=== PATIENT | female | born 1935 | race Caucasian/White ===

== ENCOUNTER 2018-12-17 15:15 | Inpatient (IN) ==
[2018-12-17] MEDS ORDERED: ASPIRIN PO ONE (16:02)
[2018-12-17] MEDS ORDERED: ASPIRIN PR ONE (16:02)
[2018-12-17 16:33] LABS: BE 1.9 mmoll (-3.0-3.0); BLOOD TYPE ARTERIAL; HCO3-(ACT) 26.3 mmoll (20.0-26.0); METHB 1.3 % (0.0-1.5); O2(CT) 21.5 mL/dL (15.0-23.0); O2HB 93.2 % (95.0-99.0); PCO2(98.6) 30 mmHg (35-45); PO2(98.6) 66 mmHg (60-100); SAMPLE BLOOD; SAO2 96.8 % (95.0-100.0); THB 16.4 g/dL (11.5-17.4); pH(98.6) 7.51 (7.35-7.45)
[2018-12-17 16:35] LABS: ALLEN TEST YES; MODALITY ROOM AIR
[2018-12-17 16:59] LABS: BASO# 0.04 X1000 (0.0-0.2); BASO% 0.5 % (0.0-0.8); EOS# 0.01 X1000 (0.0-0.7); EOS% 0.1 % (0.0-10.0); HEMATOCRIT 46.1 % (37.0-47.0); HEMOGLOBIN 15.8 g/dL (12.0-16.0); IMM GRAN# 0.02 X1000 (0.0-0.04); IMM GRAN% 0.2 % (0.0-0.5); LYMPH# 1.08 X1000 (1.2-3.4); LYMPH% 12.2 % (20.5-51.1); MCH 30.9 PG (27-31); MCHC 34.3 g/dL (33-37); MONO# 0.93 X1000 (0.11-0.59); MONO% 10.5 % (1.7-9.3); NEUT# 6.77 X1000 (1.4-6.5); NEUT% 76.5 % (42.2-75.2); PLT 249 X1000 (130-400); RBC 5.12 XMIL (4.2-5.4); RDW 12.9 % (11.5-14.5); WBC 8.85 X1000 (4.8-10.8)
[2018-12-17 17:21] LABS: ALBUMIN 4.3 g/dL (3.5-5.0); CALCIUM 10.7 mg/dL (8.8-10.2); POTASSIUM 3.7 mmol/L (3.5-5.1); TOTAL BILIRUBIN 0.7 mg/dL (0.20-1.00); TOTAL PROTEIN 7.3 g/dL (6.3-8.3)
[2018-12-17 17:24] LABS: PROTIME 13.7 Seconds (11.0-16.0); PTT 26.7 Seconds (22.3-41.8)
--- NOTE | 2018-12-17 17:33 | PROVIDER DOCUMENTATION ---
HPI-Respiratory General - General Chief Complaint: Shortness of Breath Stated Complaint: SOB Time Seen by Provider: 12/17/18 17:20 Source: patient Allergies/Adverse Reactions: Patient Allergies Allergy/AdvReac Type Severity Reaction Status Date / Time Penicillins Allergy Intermediate RASH Verified 03/07/17 19:48 Sulfa (Sulfonamide Allergy Intermediate RASH Verified 03/07/17 19:48 Antibiotics) Home Medications: Home Medication List Medication Instructions Recorded Confirmed Last Taken Type Amlodipine Besylate [Norvasc] 5 mg PO DAILY 12/01/15 03/07/17 03/07/17 08:30 History Pregabalin [Lyrica] 25 mg PO TID 12/01/15 03/07/17 03/07/17 08:30 History Quetiapine Fumarate [Seroquel] 25 mg PO QHS 12/01/15 03/07/17 03/06/17 History Zolpidem [Ambien] 5 mg PO QHS 12/01/15 03/07/17 03/06/17 History ATORVAstatin [Lipitor] 20 mg PO QHS 03/07/17 03/07/17 03/06/17 History Aspirin 81 mg PO HS 03/07/17 03/07/17 03/06/17 History Dicyclomine HCl [Bentyl] 20 mg PO 3-4XDAY PRN PRN 03/07/17 03/07/17 Unknown History Metoclopramide HCl 2 tsp PO PRN PRN 03/07/17 03/07/17 Unknown History Nitrofurantoin Monohyd/M-Cryst 100 mg PO BID 03/07/17 03/07/17 03/07/17 08:30 History [Macrobid 100 mg Capsule] Sitagliptin Phos/Metformin HCl 1 each PO BID 03/07/17 03/07/17 03/07/17 08:30 History [Janumet Xr 100-1,000 mg Tablet] - History of Present Illness-Resp Nature of Presenting Problem: Patient is a 83 year old white female with history of HTN and diabetes who presents with daughter complaining of shortness of breath and orthopnea since 12 midnight last night. Denies chest pain, productive cough, fever, asthma, or history of blood clots. Review of Systems - Adult - REVIEW OF SYSTEMS - ADULT Constitutional: denies: chills, fever Eyes: denies: discharge Ears, Nose, Mouth & Throat: denies: throat pain Cardiovascular: reports: orthopnea. denies: chest pain Respiratory: reports: see HPI, shortness of breath Gastrointestinal: denies: abdominal pain, nausea, vomiting Genitourinary: denies: dysuria Musculoskeletal: reports: no symptoms reported Integumentary: denies: rash Neurological: reports: no symptoms reported Psychiatric: reports: no symptoms reported Endocrine: reports: no symptoms reported Hematologic/Lymphatic: reports: no symptoms reported Allergic/Immunologic: reports: no symptoms reported All Other Systems: Reviewed and Negative Past History - Adult - PAST MEDICAL HISTORY-ADULT Review of Records: reports: Old Records Reviewed, Nursing Assessment Review, Medications Reviewed, Social history reviewed & non-contributory. Major Childhood Illnesses: reports: denies history Cardiovascular: reports: HTN Musculoskeletal: reports: fibromyalgia Endocrine/Immune: reports: Diabetes - PRIOR SURGERIES/PROCEDURES Surgical/Procedure History: reports: cholecystectomy, hysterectomy, other (TMJ, ear, cervical fusions) - IMMUNIZATION STATUS Childhood Immunizations: See Nurse Assessment Flu Vaccine: See Nurse Assessment - FAMILY HISTORY Family History: reviewed, not pertinent - SOCIAL HISTORY Smoking: denies Substance Use: denies Alcohol Use Frequency: never Living Situation: family Physical Exam-General - PHYSICAL EXAM-ADULT Initial Vital Signs Reviewed: Yes - CONSTITUTIONAL General Appearance: alert, no apparent distress, other (nondiaphoretic) - EYES Eyes: other (clear) - HEAD, EARS, NOSE, MOUTH & THROAT HENMT: moist mucous membranes, normal ENT inspection - NECK Neck: supple - RESPIRATORY Respiratory: lungs clear, decreased breath sounds (decreased breath sounds over right lung base) - CARDIOVASCULAR Cardiovascular: regular rate, rhythm - GASTROINTESTINAL (ABDOMEN) Abdominal Exam: normal bowel sounds, non tender, soft - LYMPHATIC Lymphatic: no adenopathy - MUSCULOSKELETAL Back Exam: normal inspection, no CVA tenderness Extremity: non-tender, other (mild pedaledema, no cords, no Homans) - SKIN Integumentary: normal color, normal turgor, warm/dry - NEUROLOGIC Neurologic: grossly normal - PSYCHIATRIC Psych/Mental Status: oriented x 3, anxious Progress - PLAN OF CARE/RESULTS Result Diagrams: 12/17/18 16:35 12/17/18 16:35 - CT/MRI 1 CT Study: Thorax CT Results: bilateral pulmonary emboli Departure - Departure Date of Disposition Decision: 12/17/18 Time of Disposition Decision: 20:54 DIAGNOSIS: Pulmonary embolism, bilateral RLL pneumonia Qualifiers: Pneumonia type: due to unspecified organism Qualified Code(s): J18.1 - Lobar pneumonia, unspecified organism Disposition: ADMITTED INPATIENT 09 Certified Medical Emergency: Emergent Condition: Stable - Critical Care Note This patient required my direct & personal management of CC.: No Attestation - Physician/ MERRY Attestation Patient care was provided by Advanced Practice Provider:: No The physician spent face to face time with patient:: Yes Advanced Practice Provider documentation review:: Supervising physician onsite and consulted in the evaluation and care of this patient. The physician did have a face to face encounter with the patient.
--- NOTE | 2018-12-17 18:08 | Diag Imaging Result Doc PS360 ---
EXAM: CHEST-2 VIEWS INDICATION: sob TECHNIQUE: 2 views COMPARISON: 03/07/2017 FINDINGS: There is groundglass opacity at the right lower lung zone suggesting an infiltrate. There is also probably a component of atelectasis as well as a small pleural effusion on the right. The left lung is clear. There is no evidence of pneumothorax. The cardiomediastinal silhouette and central vasculature are grossly unremarkable. IMPRESSION: Right basilar consolidation suggesting pneumonia, likely with a component of atelectasis and an effusion. Electronically signed by Jorge Cheney 12/17/2018 6:05 PM
[2018-12-17] MEDS ORDERED: NS 1,000 ML IV ONE ×2 (18:42→18:58)
[2018-12-17] MEDS ORDERED: LEVAQUIN 750 MG/D5W 750 MG/150 ML IVPB IV ONE (18:42)
[2018-12-17] MEDS ORDERED: DUONEB (A & A) INH ONE (19:00)
--- NOTE | 2018-12-17 19:06 | EKG Report ---
Test Performed on : 12/17/2018 4:26:34 PM Test Reason : sob Blood Pressure : / mmHG Vent. Rate : 096 BPM Atrial Rate : 096 BPM P-R Int : 130 ms QRS Dur : 080 ms QT Int : 388 ms P-R-T Axes : 011 002 033 degrees QTc Int : 490 ms Sinus rhythm. with premature atrial complexes. Nonspecific T wave abnormality Abnormal ECG When compared with ECG of 07-MAR-2017 17:29, premature atrial complexes. are now present QT has shortened Unconfirmed Result
--- NOTE | 2018-12-17 20:43 | Diag Imaging Result Doc PS360 ---
EXAM: CT ANGIOGRM PULMONARY ARTERIES INDICATION: sob,elevated d-dimer TECHNIQUE: This exam was performed using automated exposure control, adjustment of mA or kV according to patient size, and/or use of iterative reconstruction technique. Thin section axial images and 3-D MIPS were obtained. COMPARISON: None. FINDINGS: There is a filling defect in the distal left pulmonary artery that extends into the second and third order branches leading to the left lower lobe and the lingula. There is another smaller filling defects seen in a branch of the right pulmonary artery leading to the anterior segment of the right upper lobe. These are consistent with acute pulmonary emboli. The clot burden is relatively light. There is no evidence of heart strain. There is no cardiomegaly. There is no evidence of significant mediastinal or hilar lymphadenopathy. There is a moderate to large size right pleural effusion with adjacent right basilar atelectasis. The lungs are clear, otherwise. No definite pulmonary infarct is appreciated. Limited views of the upper abdomen reveal moderate to severe hepatic steatosis. IMPRESSION: 1.Bilateral pulmonary emboli as described with a relatively light clot burden. 2.Moderate to large sized pleural effusion on the right with right basilar atelectasis. 3.Incidental hepatic steatosis. Electronically signed by Jorge Cheney 12/17/2018 8:40 PM
[2018-12-17] MEDS ORDERED: LOVENOX 1 MG/KG SUBQ ONE (20:49)
[2018-12-17] MEDS ORDERED: LOVENOX SUBQ SCH (21:00)
[2018-12-18] MEDS ORDERED: TUMS PO ONE (00:57)
[2018-12-18] MEDS: SEROQUEL PO SCH ×2 (01:36→20:41)
[2018-12-18] MEDS: AMBIEN PO SCH ×2 (01:36→20:41)
[2018-12-18 02:24] LABS: BILIRUBIN URINE NEGATIVE (NEGATIVE); BLOOD URINE NEGATIVE (NEGATIVE); CLARITY CLEAR (CLEAR); COLOR YELLOW; GLUCOSE URINE NEGATIVE (NEGATIVE); KETONE URINE TRACE mg/dL (NEGATIVE); LEUKOCYTES URINE 1+ (NEGATIVE); NITRITE URINE NEGATIVE (NEGATIVE); PROTEIN URINE TRACE mg/dL (NEGATIVE); UROBILINOGEN URINE NORMAL
[2018-12-18 02:32] LABS: URINE BACTERIA 2+ /HFP; URINE CAST NONE SEEN /LPF; URINE EPITHELIAL CELLS <10 /HPF (<10); URINE YEAST NONE SEEN /HPF
[2018-12-18 02:33] LABS: URINE CRYSTAL NONE SEEN /HPF; URINE SOURCE CLEAN CATCH
[2018-12-18] MEDS: LOVENOX SUBQ SCH ×3 (16:40→20:55)
--- NOTE | 2018-12-18 16:58 | HISTORY AND PHYSICAL ---
HISTORY OF PRESENT ILLNESS: This is a 89-year-old female with a past medical history of hypertension and diabetes mellitus type 2 who presents to the emergency department complaining of shortness of breath that started happening in the last 24 hours. She said that she was feeling fine but she noticed some substernal chest pressure. No pain. No cough no fever. Upon ER evaluation, she was found to have a pulmonary embolism so she was admitted for further evaluation and treatment. PAST MEDICAL HISTORY: 1. Hypertension. 2. Diabetes mellitus type 2. 3. Fibromyalgia. 4. Osteoarthritis. 5. Gastroesophageal reflux disease. PAST SURGICAL HISTORY: 1. Two neck surgeries. 2. Hysterectomy. 3. Cholecystectomy. ALLERGIES: Patient is allergic to penicillin and sulfa drugs. SOCIAL HISTORY: She is a never smoker. Does not drink any alcohol or use illicit drugs. REVIEW OF SYSTEMS: Eleven systems were reviewed and all symptoms are related to H P. PHYSICAL EXAMINATION: VITAL SIGNS: Temperature 98.6 degrees, heart rate 90, respiratory rate 18, blood pressure 137/55, O2 saturation 98% on room air. GENERAL EXAMINATION: This is an 88-year-old female lying in bed, in no acute distress. HEENT: Head is normocephalic, atraumatic. NECK: No JVD noted. No carotid bruits. No lymphadenopathy. No thyromegaly. CARDIOVASCULAR: S1, S2 heard. No murmurs, gallops, or rubs. Regular rate and rhythm. RESPIRATORY: Clear bilaterally to auscultation. No work of breathing or using accessory muscles. ABDOMEN: Soft. Nontender to palpation. Bowel sounds present. No organomegaly. EXTREMITIES: No clubbing, cyanosis, or edema. Peripheral pulses present in both legs. NEUROLOGICAL: The patient is alert and oriented x3. Moves 4 extremities. LABORATORY DATA: Reviewed. ASSESSMENT AND PLAN: 1. Bilateral pulmonary embolism. That is the reason why this patient was admitted to the hospital, so we have started her on Lovenox 1 mg/kg every 12 hours. We will continue with the same management. I think at discharge we can switch it to Xarelto. We are going to check an echocardiogram to rule out any right heart strain. 2. Hypertension. We will continue with home medications. 3. Diabetes mellitus type 2. Will star a diabetic diet and we will do sliding scale insulin and Accu-Chek before meals and also bedtime. Further recommendations to follow according to clinical situation of the patient. cc: Ranulfo Lantigua MD
[2018-12-18] MEDS: HUMALOG (PARKWAY) SUBQ SCH (21:45)
[2018-12-19] MEDS: LOVENOX SUBQ SCH ×2 (06:05→17:18)
[2018-12-19] MEDS: HUMALOG (PARKWAY) SUBQ SCH ×4 (07:01→20:24)
[2018-12-19 07:13] LABS: CALCIUM 8.4 mg/dL (8.8-10.2); CREATININE 0.9 mg/dL (0.5-0.9); POTASSIUM 2.7 mmol/L (3.5-5.1)
[2018-12-19 07:42] LABS: BASO# 0.03 X1000 (0.0-0.2); BASO% 0.4 % (0.0-0.8); EOS# 0.21 X1000 (0.0-0.7); EOS% 2.9 % (0.0-10.0); HEMATOCRIT 41.2 % (37.0-47.0); HEMOGLOBIN 13.5 g/dL (12.0-16.0); IMM GRAN# 0.01 X1000 (0.0-0.04); IMM GRAN% 0.1 % (0.0-0.5); LYMPH# 2.36 X1000 (1.2-3.4); LYMPH% 32.7 % (20.5-51.1); MCH 30.3 PG (27-31); MCHC 32.8 g/dL (33-37); MCV 92.4 FL (81-99); MONO# 1.16 X1000 (0.11-0.59); MONO% 16.1 % (1.7-9.3); MPV 11.1 FL (7.4-10.4); NEUT# 3.44 X1000 (1.4-6.5); NEUT% 47.8 % (42.2-75.2); PLT 211 X1000 (130-400); RBC 4.46 XMIL (4.2-5.4); RDW 13.2 % (11.5-14.5); WBC 7.21 X1000 (4.8-10.8)
[2018-12-19] MEDS ORDERED: KLOR-CON PO ONE (10:39)
[2018-12-19] MEDS: POTASSIUM CHLORIDE 20 MEQ/SWI 20 MEQ/100 ML IVPB IV SCH ×2 (11:08→13:24)
--- NOTE | 2018-12-19 11:12 | EKG Report ---
Test Performed on : 12/19/2018 10:50:05 AM Test Reason : IRREGLAR RHYTHEM Blood Pressure : / mmHG Vent. Rate : 071 BPM Atrial Rate : 071 BPM P-R Int : 150 ms QRS Dur : 082 ms QT Int : 388 ms P-R-T Axes : 032 023 062 degrees QTc Int : 421 ms Sinus rhythm. with premature atrial complexes. Low voltage QRS Borderline ECG When compared with ECG of 17-DEC-2018 16:26, (Unconfirmed) QT has shortened Confirmed by Dano Slater MD ([id number]) on 12/21/2018 3:13:21 PM
[2018-12-19] MEDS ORDERED: NS 500 ML IV SCH (13:15)
--- NOTE | 2018-12-19 16:33 | Extremity Venous Study ---
EXAM: Venous U/S Bilateral Legs - 12/18/2018 HISTORY: r/o dvt TECHNIQUE: Bilateral lower extremity Doppler venous ultrasound COMPARISON: None. FINDINGS: The deep veins of the bilateral lower extremities demonstrate flow and compressibility. There are no filling defects identified. IMPRESSION: No evidence of deep venous thrombosis in either lower extremity. Electronically signed by Lai Daniels 12/19/2018 4:31 PM
[2018-12-19 18:23] LABS: MAGNESIUM 1.4 mg/dL (1.5-2.7); POTASSIUM 4.2 mmol/L (3.5-5.1)
[2018-12-19] MEDS: AMBIEN PO SCH (20:22)
[2018-12-19] MEDS: SEROQUEL PO SCH (20:22)
--- NOTE | 2018-12-19 22:58 | PROGRESS NOTE ---
DATE: 12/19/2018 SUBJECTIVE: Patient states that she is feeling better, although still very weak and fatigued. She is having difficulty ambulating. Denies any fevers, chills, cough, congestion. Denies any current chest pain, palpitations, shortness of breath. OBJECTIVE: Vital signs: Temperature 98, pulse 83, BP 142/71. General: Patient is in no current respiratory distress. She is pleasant. HEENT: Normocephalic. Neck: Supple. Cardiovascular: Regular rate. Chest: Clear. Abdomen: Soft. Extremities: Moves all extremities. Neurologic: No focal changes. ASSESSMENT: 1. Bilateral pulmonary emboli. 2. Hypertension. 3. Diabetes. 4. Adult failure to thrive with generalized weakness. 5. Others. PLAN: We will continue patient in the hospital. Continue to follow. Hopefully, she will improve and can be discharged home soon. cc: Romeo Tan MD
[2018-12-20] MEDS ORDERED: BENTYL PO PRN (06:10)
[2018-12-20] MEDS: LOVENOX SUBQ SCH ×2 (06:32→18:01)
[2018-12-20] MEDS: HUMALOG (PARKWAY) SUBQ SCH ×4 (06:32→21:47)
[2018-12-20 06:58] LABS: BASO# 0.05 X1000 (0.0-0.2); BASO% 0.9 % (0.0-0.8); EOS# 0.24 X1000 (0.0-0.7); EOS% 4.1 % (0.0-10.0); HEMATOCRIT 41.6 % (37.0-47.0); HEMOGLOBIN 13.8 g/dL (12.0-16.0); IMM GRAN# 0.01 X1000 (0.0-0.04); IMM GRAN% 0.2 % (0.0-0.5); LYMPH# 1.59 X1000 (1.2-3.4); MCH 30.6 PG (27-31); MCHC 33.2 g/dL (33-37); MCV 92.2 FL (81-99); MONO# 0.95 X1000 (0.11-0.59); MONO% 16.2 % (1.7-9.3); MPV 11.2 FL (7.4-10.4); NEUT# 3.04 X1000 (1.4-6.5); NEUT% 51.6 % (42.2-75.2); PLT 212 X1000 (130-400); RBC 4.51 XMIL (4.2-5.4); RDW 13.2 % (11.5-14.5); WBC 5.88 X1000 (4.8-10.8)
[2018-12-20 07:01] LABS: CALCIUM 8.4 mg/dL (8.8-10.2); CREATININE 0.9 mg/dL (0.5-0.9); POTASSIUM 3.1 mmol/L (3.5-5.1)
[2018-12-20] MEDS: MAG-OX PO SCH ×2 (08:51→21:47)
[2018-12-20] MEDS: MACROBID PO SCH ×2 (08:51→21:47)
[2018-12-20] MEDS: JANUVIA PO SCH ×2 (08:51→18:01)
[2018-12-20] MEDS: NORVASC PO SCH (08:51)
[2018-12-20] MEDS: LYRICA PO SCH ×3 (08:51→21:47)
[2018-12-20] MEDS: GLUCOPHAGE XR PO SCH ×2 (08:52→18:01)
--- NOTE | 2018-12-20 13:55 | ECHO REPORT ---
ORDER DATE: 12/18/2018 INDICATION: Pulmonary embolus. FINDINGS: 1. The right atrium appears normal in size. 2. Mild tricuspid regurgitation. RV systolic pressure of 42. 3. Limited views of the right ventricle but overall appears to be normal in size with normal systolic function. 4. No significant pulmonic insufficiency. 5. Normal left atrial size at 3.3 cm. 6. No mitral valve prolapse. Trace mitral regurgitation. No evidence of stenosis. 7. Normal LV size with an end-diastolic dimension of 3.7 cm. No evidence of left ventricular hypertrophy. LV systolic function appears normal and greater than or equal to 55%. Limited images obtained, Optison contrast was used. No obvious segmental abnormalities but again, a very difficult study. 8. Aortic valve opens well. It is trileaflet. No evidence of stenosis or insufficiency. 9. The aorta appears normal in visualized segments. 10. No pericardial effusion seen. cc: MD Ranulfo Jenkins MD
[2018-12-20] MEDS ORDERED: SEROQUEL PO SCH (21:00)
[2018-12-20] MEDS ORDERED: AMBIEN PO SCH (21:00)
[2018-12-20] MEDS: SEROQUEL PO SCH (21:47)
[2018-12-20] MEDS: AMBIEN PO SCH (21:47)
[2018-12-20] MEDS: ASPIRIN PO SCH (21:47)
[2018-12-20] MEDS: LIPITOR PO SCH (21:47)
--- NOTE | 2018-12-20 22:25 | PROGRESS NOTE ---
DATE: 12/20/2018 SUBJECTIVE: The patient notes she is still very tired and fatigued, has not really been out of bed. Denies any fevers, chills. Denies cough, congestion. OBJECTIVE: Vital signs: Temperature is 97.8, pulse 78, respiratory rate 18, BP 153/76. General: Patient is awake. Currently she is in no respiratory distress. HEENT: Normocephalic. Neck: Supple. Cardiovascular: Regular rate. Chest: Clear. Abdomen: Soft, nondistended. Extremities: Moves all extremities. Neurologic: No changes. Still has generalized weakness with no focal changes. ASSESSMENT: 1. Bilateral pulmonary emboli. 2. Hypertension. 3. Diabetes. 4. Adult failure to thrive with generalized weakness. PLAN: We will continue patient in the hospital, continue physical therapy. We will attempt to get out of bed for meals. Further orders as needed. Hopefully, she can regain some strength and will be able to go home over the next day or two. cc: Romeo Tan MD
[2018-12-21] MEDS: LOVENOX SUBQ SCH ×2 (05:07→17:22)
[2018-12-21] MEDS: HUMALOG (PARKWAY) SUBQ SCH ×4 (06:09→21:20)
[2018-12-21 06:23] LABS: BASO# 0.05 X1000 (0.0-0.2); BASO% 0.6 % (0.0-0.8); EOS# 0.22 X1000 (0.0-0.7); EOS% 2.8 % (0.0-10.0); HEMATOCRIT 39.8 % (37.0-47.0); HEMOGLOBIN 12.9 g/dL (12.0-16.0); IMM GRAN# 0.01 X1000 (0.0-0.04); IMM GRAN% 0.1 % (0.0-0.5); LYMPH# 1.74 X1000 (1.2-3.4); LYMPH% 22.2 % (20.5-51.1); MCH 29.9 PG (27-31); MCHC 32.4 g/dL (33-37); MCV 92.3 FL (81-99); MONO# 1.05 X1000 (0.11-0.59); MONO% 13.4 % (1.7-9.3); MPV 11.5 FL (7.4-10.4); NEUT# 4.77 X1000 (1.4-6.5); NEUT% 60.9 % (42.2-75.2); PLT 219 X1000 (130-400); RBC 4.31 XMIL (4.2-5.4); RDW 13.2 % (11.5-14.5); WBC 7.84 X1000 (4.8-10.8)
[2018-12-21 06:39] LABS: CALCIUM 8.4 mg/dL (8.8-10.2); POTASSIUM 3.2 mmol/L (3.5-5.1)
[2018-12-21] MEDS ORDERED: KLOR-CON PO ONE (06:58)
[2018-12-21] MEDS: JANUVIA PO SCH ×2 (08:26→16:03)
[2018-12-21] MEDS: GLUCOPHAGE XR PO SCH ×2 (08:26→16:03)
[2018-12-21] MEDS: NORVASC PO SCH (08:27)
[2018-12-21] MEDS: LYRICA PO SCH ×3 (08:27→21:21)
[2018-12-21] MEDS: MACROBID PO SCH ×2 (08:27→21:21)
[2018-12-21] MEDS: MAG-OX PO SCH ×2 (08:27→21:21)
[2018-12-21] MEDS: SEROQUEL PO SCH (21:21)
[2018-12-21] MEDS: LIPITOR PO SCH (21:21)
[2018-12-21] MEDS: AMBIEN PO SCH (21:21)
[2018-12-21] MEDS: ASPIRIN PO SCH (21:21)
--- NOTE | 2018-12-22 00:58 | PROGRESS NOTE ---
DATE: 12/21/2018 SUBJECTIVE: Patient notes that she is feeling a little bit better. She did get tired and fatigued with ambulation yesterday. Hopefully, she will be able to participate with physical therapy a little bit better today. OBJECTIVE: Vital signs: Temperature 98, pulse 85, respiratory rate 18, BP 122/50. General: Patient is awake, alert. She is in no distress. HEENT: Normocephalic. Neck: Supple. Cardiovascular: Regular rate. No murmurs. Chest: Clear, nonlabored. Abdomen: Soft, nondistended. Extremities: Moves all extremities. Neurologic: No changes. ASSESSMENT: 1. Hypokalemia. Potassium 3.2. We will replace. 2. Bilateral pulmonary emboli. 3. Generalized weakness. 4. Adult failure to thrive. 5. Diabetes. 6. Hypertension. PLAN: We will continue patient in the hospital. Continue to follow. Continue physical therapy. Hopefully, she can improve strength-iverson and be discharged home tomorrow. cc: Romeo Tan MD
[2018-12-22] MEDS: LOVENOX SUBQ SCH (05:04)
[2018-12-22] MEDS: HUMALOG (PARKWAY) SUBQ SCH ×2 (06:00→12:33)
[2018-12-22 06:44] LABS: HEMATOCRIT 40.9 % (37.0-47.0); HEMOGLOBIN 13.3 g/dL (12.0-16.0); MCH 30.4 PG (27-31); MCHC 32.5 g/dL (33-37); MCV 93.4 FL (81-99); RBC 4.38 XMIL (4.2-5.4); RDW 13.4 % (11.5-14.5); WBC 7.89 X1000 (4.8-10.8)
[2018-12-22 06:51] LABS: ALBUMIN 3.2 g/dL (3.5-5.0); CALCIUM 8.6 mg/dL (8.8-10.2); CREATININE 0.9 mg/dL (0.5-0.9); MAGNESIUM 1.6 mg/dL (1.5-2.7); POTASSIUM 3.4 mmol/L (3.5-5.1); TOTAL BILIRUBIN 0.3 mg/dL (0.20-1.00); TOTAL PROTEIN 5.9 g/dL (6.3-8.3)
[2018-12-22] MEDS: JANUVIA PO SCH (08:56)
[2018-12-22] MEDS: NORVASC PO SCH (08:56)
[2018-12-22] MEDS: GLUCOPHAGE XR PO SCH (08:57)
[2018-12-22] MEDS: LYRICA PO SCH (08:57)
[2018-12-22] MEDS: MACROBID PO SCH (08:57)
[2018-12-22] MEDS: MAG-OX PO SCH (08:57)
[2018-12-22 11:19] VITALS: BP 141/62
--- NOTE | 2018-12-23 09:26 | DISCHARGE SUMMARY ---
ADMISSION DATE: 12/17/2018 DISCHARGE DATE: 12/22/2018 CONSULTATIONS: None. PERTINENT PROCEDURES: 1. Pulmonary arteriogram-bilateral PE with a relatively light clot burden, moderate to large size pleural effusion on the right with right basilar atelectasis, incidental hepatic stenosis. 2. Venous Dopplers-no evidence of DVT in either lower extremity. 3. Echocardiogram shows an EF of 55%. DISCHARGE DIAGNOSES: 1. Bilateral pulmonary embolus. The patient has been on slow-dose Lovenox. She will transition over to Xarelto pending her insurance approval and will be discharged back home to follow up with her primary. 2. Hypokalemia resolved. 3. Generalized weakness. The patient has been working with physical therapy. Their recommendation is home with home health. 4. Adult failure to thrive. 5. Diabetes. Continue home regimen. 6. Hypertension. Continue home medications. HOSPITAL COURSE: Briefly, Ms. Zarate is an 83-year-old female with a past medical history of hypertension, diabetes mellitus type 2. She came to the ED complaining of shortness of breath. Workup in the ED revealed a pulmonary embolus. She was admitted and started on full dose Lovenox and will be transitioned to Xarelto. She did have some weakness throughout her hospital course. We did have her working with physical therapy. She was up walking in the hallways without any issues. Their recommendation was home health. She will be discharged after authorization from her insurance for Xarelto. VITAL SIGNS AT THE TIME OF DISCHARGE: Temperature is 98, heart rate 81, respirations 18, blood pressure 138/69. O2 saturation 98% on room air. DISCHARGE DIET: Healthy Heart. DISCHARGE MEDICATIONS: 1. Ambien 5 mg p.o. at bedtime. 2. Lipitor 20 mg p.o. at bedtime. 3. Seroquel 25 mg p.o. at bedtime. 4. Aspirin 81 mg p.o. at bedtime. 5. Bentyl 20 mg p.o. 3 to 4 times a day p.r.n. 6. Janumet XR 1 each p.o. b.i.d. 7. Lyrica 25 mg p.o. t.i.d. 8. Macrobid 100 mg b.i.d. 9. Reglan 2 tablespoon p.o. p.r.n. 10. Norvasc 5 mg p.o. daily. 11. Xarelto 15 mg p.o. b.i.d. for the first 21 days then Xarelto 20 mg p.o. daily. FOLLOWUP: Ms. Zarate is being discharged back home after her insurance approves Xarelto for her anticoagulation. She will need care provider, Dr. Bean Lunsford. She can return to the ED or call 911 for any worsening of symptoms. Dictated by LUIS CARLOS Campo for Romeo Tan MD cc: Romeo Tan MD
--- NOTE | 2018-12-23 14:45 | DISCHARGE SUMMARY ---
ADMISSION DATE: 12/17/2018 DISCHARGE DATE: 12/22/2018 ADDENDUM: Patient seen and examined by myself. Full note dictated and discussed with nurse practitioner. Patient presented to the hospital, subsequently diagnosed with pulmonary emboli bilaterally. She was placed on Lovenox without any difficulties. On discharge, she is able to ambulate the lujan. We are going to discharge her home with [facility]. She will follow up outpatient with her primary care. cc: Romeo Tan MD
== END 2018-12-22 12:27 | disposition home health service (06) | DRG 176 ==
LOC: P.ED 15:15 → P.MEDSURG 15:16 → SUATTDRO 15:16
PROVIDERS: ATTEND Family Medicine